=== PATIENT | female | born 1985 | race Caucasian/White ===

== ENCOUNTER 2019-11-06 15:41 | Emergency (ER) | payer OTHER ==
[~2019-11-06] VITALS: Ht 170.2 cm; Wt 108.9 kg
[2019-11-06] MEDS ORDERED: TETANUS-DIPTH-ACEL PERTUSSIS 0.5ML SYR Tdap IM ONE (19:30)
[2019-11-06] MEDS ORDERED: cefTRIAXone SOD 1,000 MG VL IM ONE (20:00)
[2019-11-06 21:33] VITALS: BP 138/68
== END 2019-11-06 21:48 | disposition home or self-care (01) ==
LOC: ER 15:41
DX: S51.851A Open bite of right forearm, initial encounter (principal); S51.811A Laceration without foreign body of right forearm, initial encounter; W54.0XXA Bitten by dog, initial encounter; Y93.89 Activity, other specified; Y92.89 Other specified places as the place of occurrence of the external cause; Y99.8 Other external cause status
CPT/HCPCS: 12002; 90471; 90715; 96372; 99284; J0696